=== PATIENT | female | born 1985 | race American Indian/Alaskan Native ===

== ENCOUNTER 2018-06-15 16:49 | Emergency (ER) | payer MEDICAID ==
[~2018-06-15] VITALS: Ht 157.5 cm; Wt 90.7 kg
[2018-06-15] MEDS ORDERED: SUGAR PILL (17:09)
[2018-06-15 17:23] LABS: ABSOLUTE BASOPHILS 0.1 thou/uL (0.0-0.2); ABSOLUTE EOSINOPHILS 0.4 thou/uL (0.0-0.7); ABSOLUTE LYMPHOCYTES 3.4 thou/uL (0.8-5.3); ABSOLUTE MONOCYTES 1.6 thou/uL (0.0-1.2); ABSOLUTE NEUTROPHILS 10.8 thou/uL (1.6-8.1); BASOPHILS 0.4 %; EOSINOPHILS 2.4 %; HEMATOCRIT 35.3 % (37.0-47.0); HEMOGLOBIN 11.3 gm/dL (12.0-15.0); LYMPHOCYTES 20.9 %; MCH 26.8 pg (26.0-34.0); MCV 83.7 fL (80.0-100.0); MONOCYTES 9.7 %; MPV 9.2 fl. (7.2-11.1); NUCLEATED RBCS 0 /100WBC; PLATELET COUNT* 292 thou/uL (150-400); POLYS 66.6 %; RBC 4.22 mil/uL (4.20-5.00); RDW-CV 17.5 % (10.5-14.5); WBC 16.2 thou/uL (4.0-11.0)
[2018-06-15 17:34] LABS: CALCIUM 9.3 mg/dL (8.5-10.1); CREATININE 0.7 mg/dL (0.6-1.3); POTASSIUM 3.8 mmol/L (3.5-5.1)
[2018-06-15 17:39] LABS: ALBUMIN 2.8 g/dL (3.4-5.0); TOTAL BILIRUBIN 0.2 mg/dL (<0.1-1.0); TOTAL PROTEIN 7.4 g/dL (6.4-8.2)
[2018-06-15 20:11] LABS: URINE BILIRUBIN NEGATIVE (Negative); URINE BLOOD NEGATIVE (Negative); URINE CLARITY CLEAR; URINE COLOR YELLOW; URINE GLUCOSE-RANDOM NEGATIVE (Negative); URINE KETONES NEGATIVE (Negative); URINE LEUKOCYTES-REFLEX NEGATIVE (Negative); URINE NITRITE-REFLEX NEGATIVE (Negative); URINE PROTEIN NEGATIVE (Negative); URINE SPECIFIC GRAVITY 1.015 (1.005-1.030); URINE UROBILINOGEN 0.2 E.U./dl (0.2-1.0)
[2018-06-15] MEDS ORDERED: CLEOCIN HCL300 MG PO (20:33)
[2018-06-15 20:50] VITALS: BP 123/84
== END 2018-06-15 20:54 | disposition home or self-care (01) ==
LOC: M.ERS 16:49
PROVIDERS: Nurse Practitioner Family
DX: O23.591 Infection of other part of genital tract in pregnancy, first trimester (principal); B96.89 Other specified bacterial agents as the cause of diseases classified elsewhere; O21.8 Other vomiting complicating pregnancy; Z3A.08 8 weeks gestation of pregnancy